=== PATIENT | female | born 1985 | race Caucasian/White ===

== ENCOUNTER 2023-05-03 14:56 | Emergency (ER) | payer OTHER, SELFPAY ==
--- NOTE | ~2023-05-03 | XR_ITS ---
EXAMINATION: XR foot LT min 3V DATE: 05/03/2023 15:42 INDICATION: Left foot injury. TECHNIQUE: 4 views of left foot were obtained. COMPARISON: None. FINDINGS: Bone alignment is normal. No fracture. There is mild osteoarthritis of first metatarsophala ngeal joint and some of the midfoot joints. There is an enthesophyte at plantar aspect of calcaneal t uberosity. IMPRESSION: 1. Mild polyarticular osteoarthritis. Reviewed, dictated and finalized at location A.
--- NOTE | 2023-05-03 15:03 | ED.LOWEXIN ---
HPI - Extremity Injury (Lower) General Chief Complaint: Extremity Injury, Lower Stated Complaint: Left Foot/Toes Source: patient, family and RN notes reviewed History of Present Illness HPI Narrative: 37-year-old female presents to urgent care with complaints of left 2nd through 4th toe pain. Patient states she accidentally jammed her toes 3 nights ago on a piece of furniture. Patient denies any numbness or tingling. Denies any other injuries and has no other complaints. Related Data Home Medications Medication Instructions Recorded Confirmed No Home Medications 05/03/23 05/03/23 Allergies Allergy/AdvReac Type Severity Reaction Status Date / Time cefaclor [From [facility]] Allergy Other Verified 05/03/23 15:18 Review of Systems Review of Systems: CONSTITUTIONAL: Denies fever, chills, or sweats. EYES: Denies visual changes, redness, or discharge. ENT: Denies otalgia and sore throat CARDIOVASCULAR: Denies chest pain, palpitations, or edema. RESPIRATORY: Denies cough or dyspnea. GASTROINTESTINAL: Denies abdominal pain, nausea, vomiting, or diarrhea. GENITOURINARY: Denies dysuria or hematuria. SKIN: Denies rash or itching. MUSCULOSKELETAL: Left 2nd, 3rd, and 4th toe pain. NEUROLOGIC: Denies headache, numbness, or weakness. Pertinent positives per HPI. PMFSH Comments At the time of my signature, I reviewed and agree with the nursing past medical, surgical, social, and family history. There is no relevant family history pertinent to the patient complaint. Exam Narrative: GENERAL: This is a well-nourished, well-developed patient, in no apparent distress. HEAD: normocephalic, atraumatic. EYES: Sclera clear/white. Vision is grossly intact. EARS: External ears normal, auditory canals clear and without drainage. Hearing grossly intact. NOSE: External nose normal with no obvious nasal discharge, nares without redness, no rhinorrhea. THROAT: Mucous membranes moist, posterior pharynx clear. NECK: Neck supple, non-tender without lymphadenopathy, masses or thyromegaly. CARDIOVASCULAR: Regular rate RESPIRATORY: No respiratory distress SKIN: warm, intact with no suspicious lesions or rash, good texture and turgor. NEURO: awake, alert, and oriented to person, place and time. There were no obvious focal neurologic abnormalities. EXTREMITIES: Mild edema noted to left 2nd through 4th toes. BACK: Nontender without deformity or crepitus. No flank tenderness. Course Course Level of Care: Express Care Visit Vital Signs Vital signs: Vital Signs Temperature 97.4 F L 05/03/23 15:06 Pulse Rate 72 05/03/23 15:06 Respiratory Rate 20 05/03/23 15:06 Blood Pressure 148/88 H 05/03/23 15:06 Pulse Oximetry 100 05/03/23 15:06 Oxygen Delivery Room Air 05/03/23 15:06 Temperature 97.4 F L 05/03/23 15:19 Pulse Rate 72 05/03/23 15:19 Respiratory Rate 20 05/03/23 15:19 Blood Pressure 148/88 H 05/03/23 15:19 Pulse Oximetry 100 05/03/23 15:19 Oxygen Delivery Room Air 05/03/23 15:19 Reviewed MDM - Extremity Injury (Lower) MDM Narrative Medical decision making narrative: Use the RICE method at home. May take ibuprofen and/or Tylenol if needed. If symptoms persist in 1 week after conservative treatment, follow-up with specialist. Differential Diagnosis Differential diagnosis: Likely fracture of toe and other (Jammed toe, dislocation) Critical Care Time Critical Care Time Critical Care Time: No Discharge Plan Discharge Clinical Impression: Sprain of toe Qualifiers: Encounter type: initial encounter Qualified Code(s): S93.509A - Unspecified sprain of unspecified toe(s), initial encounter Patient Disposition: Home, Self-Care Condition: Stable Instructions: P.R.I.C.E. Treatment (ED) Additional Instructions: Use the RICE method at home. May take ibuprofen and/or Tylenol if needed. If symptoms persist in 1 week after conservative treatment, follow-up with specialist. Prescrip
[2023-05-03 15:06] VITALS: BP 148/88; PULSE 72; RESP 20; TEMP 36.3; O2SAT 100
[2023-05-03 15:19] VITALS: BP 148/88; PULSE 72; RESP 20; TEMP 36.3; O2SAT 100
== END 2023-05-03 16:17 | disposition home or self-care (01) ==
PROVIDERS: Emergency Provider Nurse Practitioner Family
DX: S93.505A Unspecified sprain of left lesser toe(s), initial encounter (principal); W22.03XA Walked into furniture, initial encounter
CPT/HCPCS: 73630; 99213; G0463

== ENCOUNTER 2025-05-28 14:59 | Emergency (ER) | payer OTHER, SELFPAY ==
[2025-05-28 15:06] VITALS: BP 142/89; PULSE 76; RESP 20; TEMP 37.2; O2SAT 100
--- NOTE | 2025-05-28 15:11 | ED_ITS ---
HPI - URI/Sore Throat General Chief Complaint: Upper Respiratory Infection Stated Complaint: cough/throat/fever Time Seen by Provider: 05/28/25 15:11 Source: patient Mode of arrival: ambulatory Limitations: no limitations History of Present Illness HPI Narrative: Missy is a 39-year-old female patient presenting to the clinic today with complaints of sore throat, ear pain, cough, and fever x3 days. She reports family has been having similar symptoms. Has taken Tylenol and ibuprofen for her symptoms. Denies any shortness of breath or chest pain. MD elicited complaint: sore throat and nasal congestion Related Data Allergies Allergy/AdvReac Type Severity Reaction Status Date / Time cefaclor (From [facility]) Allergy Other Verified 05/28/25 15:19 Review of Systems Review of Systems: Pertinent positives per HPI. Patient denies any fever, chills, rash, headache, visual changes, dizziness, shortness of breath, chest pain, palpitations, nausea, vomiting, diarrhea, constipation, abdominal pain, or any urinary issues. PMFSH Comments At the time of my signature, I reviewed and agree with the nursing past medical, surgical, social, and family history. There is no relevant family history pertinent to the patient complaint. Exam Narrative: General: Well-developed, morbidly obese, in no apparent distress Head: Normocephalic, atraumatic Eyes: Pupils equally round and reactive to light bilaterally, EOM intact, sclera and conjunctive clear, no discharge, lids normal Ears: Right TMs intact, mild bulging, fluid noted behind TM, left TM intact, bulging, red, ear canals clear, no drainage, grossly hearing normal. Nose: Nares patent, clear nasal discharge, no inflammation, no sinus tenderness. Mouth: Oral pharynx red without lesions or masses, good dentition, MMM. Postnasal drip Neck: Supple, trachea midline, no enlargement of anterior or posterior cervical nodes, no thyroid masses or goiter palpable. Cardio: Regular rate and rhythm, s1 and s2 normal, no murmur appreciated. Resp: Clear to auscultation bilaterally, no rhonchi, rales, wheezing or rubs Course Course Emergency Course: Portions of this record may have been created with voice recognition software. Level of Care: Express Care Visit Vital Signs Vital signs: Vital Signs Temperature 37.2 C 05/28/25 15:06 Pulse Rate 76 05/28/25 15:06 Respiratory Rate 20 05/28/25 15:06 Blood Pressure 142/89 H 05/28/25 15:06 Pulse Oximetry 100 05/28/25 15:06 Oxygen Delivery Room Air 05/28/25 15:06 Temperature 37.2 C 05/28/25 15:06 Pulse Rate 76 05/28/25 15:06 Respiratory Rate 20 05/28/25 15:06 Blood Pressure 142/89 H 05/28/25 15:06 Pulse Oximetry 100 05/28/25 15:06 Oxygen Delivery Room Air 05/28/25 15:06 Vital signs reviewed MDM - URI/Sore Throat MDM Narrative Medical decision making narrative: At the time of visit patient is resting comfortably on the exam table. Patient appears to be nontoxic. Complaints of sore throat, ear pain, cough, and fever x3 days. She reports family has been having similar symptoms. Has taken Tylenol and ibuprofen for her symptoms. Denies any shortness of breath or chest pain. On exam patient has right ear fluid noted behind the TM, left hand, bulging, red, clear nasal drainage, postnasal drip, oropharynx red. Strep, COVID, and influenza testing was ordered. Labs: Strep, COVID, and influenza testing was performed in all testing was negative Plan: Patient has URI/pharyngitis/postnasal drip/right serous otitis/left reginaldo tis media. Prescription for Augmentin was sent to the pharmacy. Supportive measures were discussed with the patient and they voiced understanding discharge instructions and agrees to treatment plan. Return precautions reviewed Differential Diagnosis Differential diagnosis: Likely upper respiratory infection, otitis media, sinusitis, viral infection, bronchitis, influenza, pharyngitis and other (COVID) Discharge Plan Discharge Clinical Impression: Upper respiratory infection, Pharyngitis, Acute left otitis media, Acute serous otitis media of right ear Patient Disposition: Home Condition: Stable Instructions: Antibiotic Form, Pharyngitis (ED), Ear Infection (ED), Upper Respiratory Infection (ED), Fluid In The Ear (Serous Otitis Media) (ED) Additional Instructions: COVID, flu, and strep test were all negative in the clinic today. We will send strep for culture Take amoxicillin as prescribed Increase fluids and stay well hydrated May take Tylenol or motrin as directed on bottle for pain/fever May use Flonase 1 spray in each nare daily May take OTC antihistamines such as Zyrtec or Claritin daily as directed on bottle May apply Vicks vapor rub to chest to open sinuses Sinus rinses for congestion Cepacol spray, cough drops, throat lozenges, warm tea with honey/lemon, gargle salt water to soothe throat BRAT diet for diarrhea Clear liquids x 24 hours then advance as tolerated for nausea/vomiting Go to the ED if you develop a worsening in your condition- high fever not controlled by Tylenol or Motrin, dehydration, weakness, lethargy, shortness of breath, or chest pain. Follow up with your PCP in 3-5 days if symptoms persist. Patient Language: Telugu Prescriptions: New amoxicillin-pot clavulanate 875-125 mg tablet 1 tablet PO Q12H 10 Days Qty: 20 0RF Follow-up/Referrals: Bonifacio,Jhon Potter MD [Primary Care Provider, Unknown] Time of Disposition: 15:32 Quality NIHSS Nursing Documentation ED NIHSS nursing documentation: reviewed/agree
--- OUTSIDE RECORDS SUMMARY | 2025-05-28 15:12 | XMS_ITS | Clinical Summary ---
Author Organization [facility] Address [address] [place] [address] Care Team Providers Care Advertising Intern Name Role Phone Jhon Valdovinos MD Primary Care Provider Katherin Chamorro MD Unavailable Jose Donovan MD Unavailable Emerson Chavez MD Unavailable [phone] Daniel Hines MD Unavailable Shana Abdi Unavailable Allergies Active Allergy Reactions Criticality Noted Date Comments Cefaclor Unknown Low 12/31/2017 As a child Latex Hives Medium 02/10/2024 Medications losartan (COZAAR) 50 mg tabletIndications :Hypertension, essential TAKE 1 TABLET BY MOUTH EVERY DAY 90 tablet 1 5 Active albuterol HFA (PROVENTIL HFA,VENTOLIN HFA,PROAIR HFA) 90 mcg/actuation inhalerIndication s:Mild intermittent asthma without complication INHALE 2 PUFFS BY MOUTH EVERY 4 HOURS NEEDED FOR SHORTNESS OF BREATH. 6.7 each 1 5 Active phentermine 37.5 mg capsuleIndication s:Weight Loss Management for Obese Patient (BMI >= 30) Take 1 capsule (37.5 mg total) by mouth every morning 30 capsule 2 5 Active Active Problems Problem Noted Date Diagnosed Date Plantar fasciitis of right foot 08/21/2024 Overview (08/25/2024): XR Right foot XR Lumbar spine 08/19 IMPRESSION: Mild L2-L3 and moderate L3-L4 degenerative disc disease with inferior lumbar facet osteoarthritis. Moderate-sized right heel spur. Polyarticular right midfoot and 1st metatarsophalangeal joint osteoarthritis Recommended podiatric assistance with heel spur Assessment & Plan (08/21/2024 1:53 PM AUTO ADJUDICATION SPECIALIST): - new diagnosis - right foot - heel area has pain when she gets up in the morning or from resting to activity - she missed appointment with podiatry in the past - obtain XR Right foot, order placed - provided patient handout of exercises to do for plantar fascitis - also has known morbid obesity, see plan for obesity Encounter for female sterilization procedure 08/2024 History of gestational diabetes 07/19/2024 Assessment & Plan (07/19/2024 1:56 PM CDT): - hx of gestational diabetes - check A1c, order placed - POC A1c 07/19/2024 - 5.7 Lab Results Component Value Date HGBA1C 5.7 07/19/2024 HGBA1C 5.2 02/18/2023 HGBA1C 5.3 09/16/2021 Hypertension, essential 07/19/2024 Assessment & Plan (12/26/2024 9:45 AM CDT): BP Readings from Last 3 Encounters: 12/26/24 128/80 11/22/24 (!) 174/99 08/31/24 143/69 - chronic condition, better controlled without medication - prior to this was on Nifedipien in peripartum period - has not been taking Losartan 50 mg daily as she will be on phentermine - monitor BP closely The current medical regimen is effective; continue present plan and medications. Assessment & Plan (08/21/2024 1:49 PM AUTO ADJUDICATION SPECIALIST): BP Readings from Last 3 Encounters: 08/21/24 140/84 08/21/24 (!) 157/106 07/19/24 130/82 - recent diagnosis, improved control - prior to this was on Nifedipien in peripartum period - recently started Losartan 50 mg daily as she will be on phentermine - monitor BP closely - continue current management Assessment & Plan (07/19/2024 1:50 PM CDT): - new diagnosis - prior to this was on Nifedipien in peripartum period - start Losartan 50 mg daily as she will be on phentermine - monitor BP closely Preventative health care 05/12/2023 Assessment & Plan (05/12/2023 4:46 PM CDT): - Acute concerns: worsening back and hip pains, see plans for trochanteric bursitis of both hips and back pain - reviewed most recent labs, and health maintenance items - Exercise: limited due to chronic pain - Immunizations: Age and sex appropriate immunizations reviewed - recommend tobacco smoking cessation - Cervical Cancer screening: up to date, sees Dr. Chavez (OBGYN), will request records for pap smear results - Breast Cancer screening: n/a - Colon cancer screening: n/a - Lung cancer screening: n/a Atypical chest pain 04/17/2023 Assessment & Plan (04/17/2023 2:03 PM CDT): - reports hx of chest pain at rest and heart palpitations and prior diagnosis of - recent ED visit with reassuring findings ut told to follow up - requesting referral with Cardiology, in past states she used to see Dr. Donovan - not on medication for it, unclear if she was on one or if she stopped it on her own - referral placed, to cardiology at [facility] Easy bruising 02/21/2023 Assessment & Plan (05/12/2023 1:21 PM CDT): - recurring condition, not at goal - see most recent relevant labs below - see orders placed as well and results which are mostly within normal limits - vitamin C level low on 02/15 - recommend vitamin C 500 mg daily intake but not on it as she sates she cannot afford it Lab Results Component Value Date WBC 10.5 (H) 02/18/2023 HGB 13.3 02/18/2023 HCT 41.3 02/18/2023 MCV 93.7 02/18/2023 LABPLAT 354 02/18/2023 Lab Results Component Value Date CALCIUM 9.1 02/18/2023 Lab Results Component Value Date IRON 51 02/18/2023 TIBC 307 02/18/2023 FERRITIN 45 02/18/2023 Lab Results Component Value Date INR 0.9 02/18/2023 Assessment & Plan (02/21/2023 6:01 AM CDT): - recurring condition, see orders for evaluation - see most recent relevant labs below - see orders placed as well and results which are mostly within normal limits - vitamin C level pending Lab Results Component Value Date WBC 10.5 (H) 02/18/2023 HGB 13.3 02/18/2023 HCT 41.3 02/18/2023 MCV 93.7 02/18/2023 LABPLAT 354 02/18/2023 Lab Results Component Value Date CALCIUM 9.1 02/18/2023 Lab Results Component Value Date IRON 51 02/18/2023 TIBC 307 02/18/2023 FERRITIN 45 02/18/2023 Lab Results Component Value Date INR 0.9 02/18/2023 Polymyalgia 01/17/2023 Assessment & Plan (05/12/2023 4:41 PM CDT): - chronic, worse - likely fibromyalgia with presentation - has mental health conditions --> managed with Psychiatry - was on gabapentin 300 mg nightly but has been off of it --> restart therapy, script sent in Lab Results Component Value Date TSH 1.56 02/18/2023 ADHD 04/28/2022 Overview (07/19/2024): Managed by psychiatry, Dr. Chamorro Assessment & Plan (12/26/2024 9:40 AM CDT): - chronic, stable - used to see Dr. Chamorro - psychiatry - used to be on Wellbutrin XL 150 mg daily Assessment & Plan (04/28/2022 11:15 AM CDT): - chronic, stable - established with Dr. Chamorro - currently on Wellbutrin XL 150 mg daily Cocaine dependence in remission 01/28/2022 Assessment & Plan (01/28/2022 9:10 AM CDT): - reports use of cocaine in remote past - has been abstinent for many years Chronic back pain 01/26/2022 Overview (08/25/2024): XR Right foot XR Lumbar spine 08/19 IMPRESSION: Mild L2-L3 and moderate L3-L4 degenerative disc disease with inferior lumbar facet osteoarthritis. Moderate-sized right heel spur. Polyarticular right midfoot and 1st metatarsophalangeal joint osteoarthritis Assessment & Plan (08/21/2024 1:55 PM AUTO ADJUDICATION SPECIALIST): - chronic, not at goal --> persistent symptoms - most recent imaging as shown below - also has bilateral trochanteric bursitis for which she follows with orthopedics - has muscle relaxer for use which she used as needed only - on weight loss medication for obesity Body mass index is 46.37 kg/m . 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 History of scoliosis of unspecified convexity and levels. No lower back surgeries. COMPARISON: Lumbar spine radiograph 02/01/2022; lumbar spine radiograph 06/27/2014 (report without images). VERTEBRAE: Vertebral bodies of normal height. Vertebral body heights unchanged. Predominantly mild spondylosis. DISCS: Multilevel variable predominantly slight loss of intervertebral disc height about the lower thoracic through lumbar spine with foci of vacuum disc phenomenon of the lower thoracic intervertebral discs. IMPRESSION: 1. Mild spondylosis and degenerative disc disease of the lumbar spine. 2. If clinically warranted, MRI of the lumbar spine without contrast can be performed for further evaluation. XR lumbar spine 01/2022 There is no definite evidence of acute fracture or subluxation involving the lumbar spine. There is a minimal levoscoliotic curvature lumbar spine centered at L3. There is no definite evidence of spondylolysis. There is minimal retrolisthesis of L4 on L5 and L5 on S1. There are mild multilevel degenerative changes lumbar spine with mild disc space narrowing, mild endplate osteophytosis, and facet arthropathy. There are mild degenerative changes bilateral sacroiliac joints with mild joint space narrowing and mild sclerosis. The visualized soft tissues are grossly unremarkable 1. Mild multilevel lumbar spondylosis without definite evidence of acute fracture or subluxation. Assessment & Plan (05/12/2023 4:48 PM CDT): - chronic, not at goal --> worse - most recent imaging as shown below - also has bilateral trochanteric bursitis for which she follows with orthopedics - has muscle relaxer for use which she used as needed onlu - on weight loss medication for obesity Body mass index is 38.09 kg/m . - interested in assistance with pain medication, referral placed to pain management EXAM DESCRIPTION: XR SPINE LUMBAR 4 OR MORE VIEWS 03/18 REASON FOR STUDY: Chronic nontraumatic lower back pain worsening over the past 2 months. History of scoliosis of unspecified convexity and levels. No lower back surgeries. COMPARISON: Lumbar spine radiograph 02/01/2022; lumbar spine radiograph 06/27/2014 (report without images). VERTEBRAE: Vertebral bodies of normal height. Vertebral body heights unchanged. Predominantly mild spondylosis. DISCS: Multilevel variable predominantly slight loss of intervertebral disc height about the lower thoracic through lumbar spine with foci of vacuum disc phenomenon of the lower thoracic intervertebral discs. IMPRESSION: 1. Mild spondylosis and degenerative disc disease of the lumbar spine. 2. If clinically warranted, MRI of the lumbar spine without contrast can be performed for further evaluation. XR lumbar spine 01/2022 There is no definite evidence of acute fracture or subluxation involving the lumbar spine. There is a minimal levoscoliotic curvature lumbar spine centered at L3. There is no definite evidence of spondylolysis. There is minimal retrolisthesis of L4 on L5 and L5 on S1. There are mild multilevel degenerative changes lumbar spine with mild disc space narrowing, mild endplate osteophytosis, and facet arthropathy. There are mild degenerative changes bilateral sacroiliac joints with mild joint space narrowing and mild sclerosis. The visualized soft tissues are grossly unremarkable 1. Mild multilevel lumbar spondylosis without definite evidence of acute fracture or subluxation. Assessment & Plan (04/17/2023 2:00 PM CDT): - chronic condition - has history of lumbar spondylosis - currently on Cyclobenzapril 5mg BID PRN and on gabapentin 300mg nightly - most recent imaging as sown below - has obesity Body mass index is 37.77 kg/m . - continue current management XR Lumbar spine 02/2023 IMPRESSION: 1. Mild spondylosis and degenerative disc disease of the lumbar spine. 2. If clinically warranted, MRI of the lumbar spine without contrast can be performed for further evaluation. XR Lumbar spine 06/2014 1. MILD DEGENERATIVE ENDPLATE CHANGES AT L3-4. 2. MILD STRAIGHTENING OF THE LUMBAR COLUMN. 3. NO EVIDENCE OF FRACTURE OR MALALIGNMENT. Assessment & Plan (01/28/2022 9:09 AM CDT): - reports past history of lumbar spondylosis - has been using Cyclobenzapril 5mg BID PRN - she was also on gabapentin 300mg nightly - need to get imaging of her lower back, ordered XR of lumbar spine Most recent XR of lumbar spine as shown below from 06/2014 XR Lumbar spien 06/2014 1. MILD DEGENERATIVE ENDPLATE CHANGES AT L3-4. 2. MILD STRAIGHTENING OF THE LUMBAR COLUMN. 3. NO EVIDENCE OF FRACTURE OR MALALIGNMENT. Bipolar affective disorder in remission 01/27/20 22 Overview (07/19/2024): Managed by psychiatry, Dr. Chamorro Assessment & Plan (12/26/2024 9:41 AM CDT): - chronic condition, stable with persistent symptoms - has comorbid diagnosis of Multiple personality disorder, ADHD, Bipolar disorder, anxiety - has established care with Dr. Chamorro - she was not compliant with medication according to her - used to be on on Wellbutrin XL 150 mg daily, Lamictal and was on control at same time, Lexapro - needs to reestablish care with Dr. Chamorro psychiatry Assessment & Plan (04/28/2022 11:14 AM CDT): - chronic condition, well controlled - has comorbid diagnosis of Multiple personality disorder, ADHD, Bipolar disorder - has established care with Dr. Chamorro - she was not compliant with medication according to her - currently on Wellbutrin XL 150 mg daily - she used to be on Lamictal and was on control at same time - continue management per psychiatry Assessment & Plan (01/26/2022 11:50 AM CDT): - chronic condition, not at goal control - has comorbid diagnosis of Multiple personality disorder - used to follow with Dr. Chamorro - she was not compliant with medication according to her - she used to be on Lamictal and was on control at same time - has made an appointment to psychiatry this month Mental health disorder 09/08/2021 Assessment & Plan (10/13/2023 10:09 AM AUTO ADJUDICATION SPECIALIST): - chronic, suboptimal control - used to follow with psychiatry - DR. Chamorro in the past - reports past diagnosis - BPD, PTSD, Depression, anxiety and ADHD - No longer following with psychiatry. She had medical non-compliance and stopped taking medications. She has been trying to conceive for over a year. She used to be on Lamictal, Zoloft or Prozac and she takes Klonopin that she has some left over. - she took her self off all her medications in the past - she does have substance use history in the past - cocaine - she is currently off her Buspar, Trazodone, Hydroxyzine, Lexparo that she was on via psychiatry since she found out she was - continue current management via psychiatry and recommend close follow up Assessment & Plan (04/17/2023 1:59 PM CDT): - chronic, suboptimal control - used to follow with psychiatry - DR. Chamorro in the past - reports past diagnosis - BPD, PTSD, Depression, anxiety and ADHD - No longer following with psychiatry. She had medical non-compliance and stopped taking medications. She has been trying to conceive for over a year. She used to be on Lamictal, Zoloft or Prozac and she takes Klonopin that she has some left over. - she took her self off all her medications in the past - she does have substance use history in the past - cocaine - she is currently on Buspar for anxiety, Trazodone, Hydroxyzine via psychiatry - continue current management via psychiatry Assessment & Plan (01/28/2022 9:09 AM CDT): - chronic, uncontrolled - used to follow with psychiatry - DR. Chamorro in the past - reports past diagnosis - BPD, PTSD, Depression, anxiety and ADHD - No longer following with psychiatry. She had medical non-compliance and stopped taking medications. She has been trying to conceive for over a year. She used to be on Lamictal, Zoloft or Prozac and she takes Klonopin that she has some left over. - she took her self off all her medications in the past - states she will be reaching out to make an appointment to see her psychiatrist for assistance Assessment & Plan (09/08/2021 6:20 AM AUTO ADJUDICATION SPECIALIST): - chronic, stable - used to follow with psychiatry - DR. Chamorro in the past - she has been given the following diagnosis - BPD, PTSD, Depression, anxiety and ADHD - No longer following with psychiatry. She had medical non-compliance and stopped taking medications. She has been trying to conceive for over a year. She used to be on Lamictal, Zoloft or Prozac and she takes Klonopin that she has some left over. - recommend reestablishing with psychiatry in the future Chronic heartburn 09/08/2021 Assessment & Plan (06/01/2022 11:05 AM CDT): - chronic, stable - currently on Famotidine 20mg BID - Continue on current meds, encouraged healthy diet and exercise Recommend the following changes: - Avoid trigger foods (such as spicy foods, fried foods, onions, peppermints, chocolate, high acid foods and juices, caffeinated beverages, carbonated beverages, and tomato based products). - Avoid alcohol take. - Avoid routine use of NSAIDs. - Avoid lying down for 2-3 hours after eating. - Weight loss encouraged. - Eat smaller meals. - Avoid tobacco use. - Sleep on left side. - may sleep with bed propped. - Avoid wearing tight clothing that puts pressure on the stomach. Assessment & Plan (11/12/2021 4:46 PM AUTO ADJUDICATION SPECIALIST): - chronic, stable - currently on Famotidine 20mg BID - Continue on current meds, encouraged healthy diet and exercise Recommend the following changes: - Avoid trigger foods (such as spicy foods, fried foods, onions, peppermints, chocolate, high acid foods and juices, caffeinated beverages, carbonated beverages, and tomato based products). - Avoid alcohol take. - Avoid routine use of NSAIDs. - Avoid lying down for 2-3 hours after eating. - Weight loss encouraged. - Eat smaller meals. - Avoid tobacco use. - Sleep on left side. - may sleep with bed propped. - Avoid wearing tight clothing that puts pressure on the stomach. Assessment & Plan (09/08/2021 6:23 AM AUTO ADJUDICATION SPECIALIST): - chronic, stable - takes Famotidine on a daily basis - Continue on current meds, encouraged healthy diet and exercise Recommend the following changes: - Avoid trigger foods (such as spicy foods, fried foods, onions, peppermints, chocolate, high acid foods and juices, caffeinated beverages, carbonated beverages, and tomato based products). - Avoid alcohol take. - Avoid routine use of NSAIDs. - Avoid lying down for 2-3 hours after eating. - Weight loss encouraged. - Eat smaller meals. - Avoid tobacco use. - Sleep on left side. - may sleep with bed propped. - Avoid wearing tight clothing that puts pressure on the stomach. 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 She had a left hand cast on so only did right hand at the time. New order placed for left hand/arm. 01/2022 - Right Upper extremity EMG/NCV EMG Concentric needle electrode sampled right abductor pollicis brevis, abductor digiti minimi, first dorsal interossei, flexor carpi ulnaris, deltoid and upper cervical paraspinal muscles. No abnormal insertion or spontaneous activity was generated. Motor unit potentials were normal. 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 - will need surgery for right carpal tunnel release, postponed it to care for her for now - told will need to lose weight for surgery Assessment & Plan (11/15/2023 5:57 AM AUTO ADJUDICATION SPECIALIST): - chronic, not at goal but worse since her - suspect carpal tunnel, states she was diagnosed with it in the past as well - checked EMG/NCV as shown below - show bilateral carpal tunnel syndrome - already has already seen a hand surgeon in past and was provided a wrist brace for left carpal tunnel syndrome which has helped her but now having similar symptoms in right wrist, in need of a wrist brace - needs a new brace, printed order for new wrist brace for her right wrist on last visit which she is yet to get EMG/NCV 12/2021 IMPRESSION This is an abnormal electrodiagnostic study with evidence of 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 She had a left hand cast on so only did right hand at the time. New order placed for left hand/arm. 01/2022 - Right Upper extremity EMG/NCV EMG Concentric needle electrode sampled right abductor pollicis brevis, abductor digiti minimi, first dorsal interossei, flexor carpi ulnaris, deltoid and upper cervical paraspinal muscles. No abnormal insertion or spontaneous activity was generated. Motor unit potentials were normal. 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 - will need surgery for right carpal tunnel release, postponed it to care for her for now - told will need to lose weight for surgery Assessment & Plan (11/15/2023 5:56 AM AUTO ADJUDICATION SPECIALIST): - chronic, not at goal but worse since her - suspect carpal tunnel, states she was diagnosed with it in the past as well - checked EMG/NCV as shown below - show bilateral carpal tunnel syndrome - already has already seen a hand surgeon in past and was provided a wrist brace for left wrist which has helped her but now having similar symptoms in right wrist, in need of a wrist brace - needs a new brace, printed order for new wrist brace for her right wrist EMG/NCV 12/2021 IMPRESSION This is an abnormal electrodiagnostic study with evidence of 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 She had a left hand cast on so only did right hand at the time. New order placed for left hand/arm. 01/2022 - Right Upper extremity EMG/NCV EMG Concentric needle electrode sampled right abductor pollicis brevis, abductor digiti minimi, first dorsal interossei, flexor carpi ulnaris, deltoid and upper cervical paraspinal muscles. No abnormal insertion or spontaneous activity was generated. Motor unit potentials were normal. 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 She had a left hand cast on so only did right hand at the time. New order placed for left hand/arm. 01/2022 - Right Upper extremity EMG/NCV EMG Concentric needle electrode sampled right abductor pollicis brevis, abductor digiti minimi, first dorsal interossei, flexor carpi ulnaris, deltoid and upper cervical paraspinal muscles. No abnormal insertion or spontaneous activity was generated. Motor unit potentials were normal. 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 - will need surgery for right carpal tunnel release, postponed it to care for her for now - told will need to lose weight for surgery Assessment & Plan (06/01/2022 11:12 AM CDT): - chronic, not at goal - suspect carpal tunnel, states she was diagnosed with it in the past as well - has tried using wrist braces already without big improvement - checked EMG/NCV as shown below - show bilateral carpal tunnel syndrome - already seeing a hand surgeon so this can be discussed as well EMG/NCV 12/2021 IMPRESSION This is an abnormal electrodiagnostic study with evidence of 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 She had a left hand cast on so only did right hand at the time. New order placed for left hand/arm. 01/2022 - Right Upper extremity EMG/NCV EMG Concentric needle electrode sampled right abductor pollicis brevis, abductor digiti minimi, first dorsal interossei, flexor carpi ulnaris, deltoid and upper cervical paraspinal muscles. No abnormal insertion or spontaneous activity was generated. Motor unit potentials were normal. 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 She had a left hand cast on so only did right hand at the time. New order placed for left hand/arm. 01/2022 - Right Upper extremity EMG/NCV EMG Concentric needle electrode sampled right abductor pollicis brevis, abductor digiti minimi, first dorsal interossei, flexor carpi ulnaris, deltoid and upper cervical paraspinal muscles. No abnormal insertion or spontaneous activity was generated. Motor unit potentials were normal. 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 She had a left hand cast on so only did right hand at the time. New order placed for left hand/arm. 01/2022 - Right Upper extremity EMG/NCV EMG Concentric needle electrode sampled right abductor pollicis brevis, abductor digiti minimi, first dorsal interossei, flexor carpi ulnaris, deltoid and upper cervical paraspinal muscles. No abnormal insertion or spontaneous activity was generated. Motor unit potentials were normal. 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 Assessment & Plan (11/12/2021 4:45 PM AUTO ADJUDICATION SPECIALIST): - chronic, not at goal - suspect carpal tunnel, states she was diagnosed with it in the past as well - has tried using wrist braces already without big improvement - check EMG of bilateral upper extremities which is scheduled in early December Assessment & Plan (09/08/2021 6:28 AM AUTO ADJUDICATION SPECIALIST): - chronic, not at goal - suspect carpal tunnel, states she was diagnosed with it in the past as well - has tried using wrist braces already - check EMG of bilateral upper extremities Morbid obesity with BMI of 45.0-49.9, adult 10/2020 Assessment & Plan (12/26/2024 9:44 AM CDT): Wt Readings from Last 3 Encounters: 12/26/24 118.8 kg (262 lb) 11/22/24 118.8 kg (262 lb) 08/31/24 119.4 kg (263 lb 3.7 oz) Body mass index is 42.31 kg/m . - chronic, not at goal - goal BMI <30 - BMI Follow-up includes: nutrition counseling, exercise counseling and education provided - she was on Victoza at some point for weight loss and then was on phentermine until she got but gave on 01/2024 - restarted Phentermine on last visit at 30 mg daily, used to be on it in the past with some weight loss - has been forgetting to take her phentermine, need more consistency in taking medication, increase to 37.5 mg phentermine, new script sent to her pharmacy Assessment & Plan (08/21/2024 1:49 PM AUTO ADJUDICATION SPECIALIST): Wt Readings from Last 3 Encounters: 08/21/24 120.7 kg (266 lb) 07/19/24 120.8 kg (266 lb 4.8 oz) 05/17/24 122.5 kg (270 lb) Body mass index is 46.37 kg/m . - chronic, not at goal - BMI Follow-up includes: nutrition counseling, exercise counseling and education provided - she was on Victoza at some point for weight loss and then was on phentermine until she got but gave on 01/2024 - restart Phentermine 15 mg daily on last visit at Weight 266 --> recently increased her phentermine to 30 mg daily but has not started it, new script placed - continue current management Assessment & Plan (07/19/2024 1:47 PM CDT): Wt Readings from Last 3 Encounters: 07/19/24 120.8 kg (266 lb 4.8 oz) 05/17/24 122.5 kg (270 lb) 04/09/24 120.2 kg (265 lb) Body mass index is 46.43 kg/m . - chronic, not at goal, not at goal - BMI Follow-up includes: nutrition counseling, exercise counseling and education provided - she was on Victoza at some point for weight loss and then was on phentermine until she got but gave on 01/2024 - restart phentermine --> restart Phentermine 15 mg daily, current BP is adequate but in case will start a low dose antihypertensive medication Assessment & Plan (04/09/2024 2:29 PM CDT): Wt Readings from Last 3 Encounters: 04/09/24 120.2 kg (265 lb) 02/16/24 129.3 kg (285 lb) 11/11/23 123.6 kg (272 lb 6.4 oz) Body mass index is 45.52 kg/m . - chronic, not at goal --> improved weight loss since giving - BMI Follow-up includes: nutrition counseling, exercise counseling and education provided - she was on Victoza at some point for weight loss and then was on phentermine until she got but gave on 01/2024 - wants to restart phentermine --> start Phentermine 15 mg daily, script sent in Assessment & Plan (11/11/2023 10:58 AM AUTO ADJUDICATION SPECIALIST): Wt Readings from Last 3 Encounters: 11/11/23 123.6 kg (272 lb 6.4 oz) 10/11/23 117.9 kg (260 lb) 08/15/23 112 kg (247 lb) Body mass index is 46.73 kg/m . - chronic, not at goal --> worse but currently as well - BMI Follow-up includes: nutrition counseling, exercise counseling and education provided - she was on Victoza at some point for weight loss and then was on phentermine until she got - continue to abstain from weight loss medications during - continue with current management Assessment & Plan (10/11/2023 3:52 PM AUTO ADJUDICATION SPECIALIST): Wt Readings from Last 3 Encounters: 10/11/23 117.9 kg (260 lb) 08/15/23 112 kg (247 lb) 06/14/23 106 kg (233 lb 9.6 oz) Body mass index is 44.61 kg/m . - chronic, not at goal --> worse but currently as well - BMI Follow-up includes: nutrition counseling, exercise counseling and education provided - she was on Victoza at some point for weight loss and then was on phentermine until she got - continue to abstain from weight loss medications during - continue with current management Assessment & Plan (08/15/2023 12:50 PM AUTO ADJUDICATION SPECIALIST): Wt Readings from Last 3 Encounters: 08/15/23 112 kg (247 lb) 06/14/23 106 kg (233 lb 9.6 oz) 06/01/23 106.1 kg (234 lb) Body mass index is 42.4 kg/m . - chronic, not at goal --> worse - BMI Follow-up includes: nutrition counseling, exercise counseling and education provided - she was on Victoza at some point for weight loss - she was told to lose weight for surgery for carpal tunnel surgery - start date of phentermine --> 274 lbs on 04/28/2022 and had lost weight to 234 lbs - no longer on phentermine that she discontinues when she found out she was - continue to abstain from weight loss medications during - she was also on Topamax for migraine headaches as well - continue with current management Assessment & Plan (06/01/2023 1:38 PM CDT): Wt Readings from Last 3 Encounters: 06/01/23 106.1 kg (234 lb) 05/12/23 107 kg (236 lb) 03/31/23 106.1 kg (234 lb) Body mass index is 37.77 kg/m . - chronic, not at goal - BMI Follow-up includes: nutrition counseling, exercise counseling and education provided - she was on Victoza at some point for weight loss - she was told to lose weight for surgery for carpal tunnel surgery - start date of phentermine --> 274 lbs on 04/28/2022 - currently on 37.5 mg daily phentermine - currently also on Topamax for migraine headaches as well - comorbidities - heartburn - has had significant weight loss while on the medication except for recent weight gain - continue current medication Assessment & Plan (05/12/2023 1:10 PM CDT): Wt Readings from Last 3 Encounters: 05/12/23 107 kg (236 lb) 03/31/23 106.1 kg (234 lb) 03/15/23 103.9 kg (229 lb) Body mass index is 38.09 kg/m . - chronic, not at goal, small weight gain - BMI Follow-up includes: nutrition counseling, exercise counseling and education provided - she was on Victoza at some point for weight loss - she was told to lose weight for surgery for carpal tunnel surgery - start date of phentermine --> 274 lbs on 04/28/2022 - currently on 37.5 mg daily phentermine - currently also on Topamax for migraine headaches as well - comorbidities - heartburn - has had significant weight loss while on the medication except for recent weight gain - continue current medication Assessment & Plan (04/17/2023 1:53 PM CDT): Wt Readings from Last 3 Encounters: 03/31/23 106.1 kg (234 lb) 03/15/23 103.9 kg (229 lb) 02/16/23 103.9 kg (229 lb) Body mass index is 37.77 kg/m . - chronic, not at goal, small weight gain - BMI Follow-up includes: nutrition counseling, exercise counseling and education provided - she was on Victoza at some point for weight loss - she was told to lose weight for surgery for carpal tunnel surgery - start date of phentermine --> 274 lbs on 04/28/2022 - currently on 37.5 mg daily phentermine - currently also on Topamax for migraine headaches as well - comorbidities - heartburn - has had significant weight loss while on the medication except for recent weight gain - continue current medication Assessment & Plan (02/21/2023 5:56 AM CDT): Wt Readings from Last 3 Encounters: 02/16/23 103.9 kg (229 lb) 01/10/23 104.8 kg (231 lb) 01/05/23 105.7 kg (233 lb) Body mass index is 36.96 kg/m . - chronic, not at goal, but improving - BMI Follow-up includes: nutrition counseling, exercise counseling and education provided - she was on Victoza at some point for weight loss - she was told to lose weight for surgery for carpal tunnel surgery - start date phentermine --> 274 lbs on 04/28/2022 - currently on 37.5 mg daily phentermine - currently also on Topamax for migraine headaches as well - comorbidities - heartburn - has had significant weight loss - continue current medication Assessment & Plan (01/10/2023 2:11 PM CDT): Wt Readings from Last 3 Encounters: 01/10/23 104.8 kg (231 lb) 01/05/23 105.7 kg (233 lb) 12/07/22 106.6 kg (235 lb) Body mass index is 37.28 kg/m . - chronic, not at goal, improved - BMI Follow-up includes: nutrition counseling, exercise counseling and education provided - she was on Victoza at some point for weight loss - she was told to lose weight for surgery for carpal tunnel surgery - start date phentermine --> 274 lbs on 04/28/2022 - currently on 37.5 mg daily phentermine - currently also on Topamax for migraine headaches - has had significant weight loss - continue current medication Assessment & Plan (10/14/2022 11:38 AM AUTO ADJUDICATION SPECIALIST): Wt Readings from Last 3 Encounters: 10/14/22 106.6 kg (235 lb) 09/29/22 106.1 kg (234 lb) 09/09/22 108.4 kg (239 lb) Body mass index is 37.95 kg/m . - chronic, not at goal, improved - BMI Follow-up includes: nutrition counseling, exercise counseling and education provided - she was on Victoza at some point for weight loss - she was told to lose weight for surgery for carpal tunnel surgery - start date phentermine --> 274 lbs on 04/28/2022 - currently on 37.5 mg daily phentermine - currently also on Topamax for migraine headaches - some slow down on weight loss with holiday season, will get back to her routine diet - continue current medication Assessment & Plan (09/29/2022 11:25 AM AUTO ADJUDICATION SPECIALIST): Wt Readings from Last 3 Encounters: 09/29/22 106.1 kg (234 lb) 09/09/22 108.4 kg (239 lb) 06/10/22 114.3 kg (252 lb) Body mass index is 37.79 kg/m . - chronic, not at goal, improved - BMI Follow-up includes: nutrition counseling, exercise counseling and education provided - she was on Victoza at some point for weight loss - she was told to lose weight for surgery for carpal tunnel surgery - start date phentermine --> 274 lbs on 04/28/2022 - currently on 37.5 mg daily phentermine, refill provided - also on Topamax 25 mg BID, refill provided - continue current medication Assessment & Plan (06/01/2022 11:12 AM CDT): Wt Readings from Last 3 Encounters: 06/01/22 116.1 kg (256 lb) 04/28/22 124.5 kg (274 lb 8 oz) 03/04/22 121.1 kg (267 lb) Body mass index is 41.34 kg/m . - chronic, not at goal, improved - BMI Follow-up includes: nutrition counseling, exercise counseling and education provided - she was on Victoza at some point for weight loss - she was told to lose weight for surgery so interested in medications - I will start her on Phentermine short term to help her lose weight, with goal of <250 lbs - start date phentermine 30 mg daily --> 274 lbs - increase to 37.5 mg daily phentermine, refill provided Assessment & Plan (04/28/2022 11:11 AM CDT): Wt Readings from Last 3 Encounters: 04/28/22 124.5 kg (274 lb 8 oz) 03/04/22 121.1 kg (267 lb) 01/26/22 121.6 kg (268 lb) Body mass index is 44.31 kg/m . - chronic, not at goal - worse - BMI Follow-up includes: nutrition counseling, exercise counseling and education provided - she was on Victoza at some point for weight loss - she was told to lose weight for surgery so interested in medications - I will start her on Phentermine short term to help her lose weight, with goal of <250 lbs Assessment & Plan (01/26/2022 11:34 AM CDT): Wt Readings from Last 3 Encounters: 01/26/22 121.6 kg (268 lb) 12/07/21 118.5 kg (261 lb 4.8 oz) 12/02/21 118.4 kg (261 lb) Body mass index is 43.28 kg/m . - chronic, not at goal - worse - BMI Follow-up includes: nutrition counseling, exercise counseling and education provided - she was on Victoza at some point for weight loss Assessment & Plan (11/12/2021 4:45 PM AUTO ADJUDICATION SPECIALIST): Wt Readings from Last 3 Encounters: 11/11/21 120.9 kg (266 lb 8 oz) 10/21/21 121.1 kg (267 lb) 08/27/21 121.3 kg (267 lb 6.4 oz) Body mass index is 43.04 kg/m . - chronic, not at goal but stable - BMI Follow-up includes: nutrition counseling, exercise counseling and education provided - she was on Victoza at some point for weight loss Assessment & Plan (08/27/2021 10:13 AM AUTO ADJUDICATION SPECIALIST): Wt Readings from Last 3 Encounters: 08/27/21 121.3 kg (267 lb 6.4 oz) 08/25/21 116.6 kg (257 lb) 05/26/21 118.1 kg (260 lb 6.4 oz) Body mass index is 43.18 kg/m . - chronic, not at goal - BMI Follow-up includes: nutrition counseling, exercise counseling and education provided - she was on Victoza at some point for weight loss Tobacco use disorder, mild, in early remission 1 10/28/2020 Overview (08/21/2024): Quit 05/2024 Assessment & Plan (08/21/2024 1:54 PM AUTO ADJUDICATION SPECIALIST): Social History Tobacco Use Smoking Status Former Current packs/day: 0.00 Average packs/day: 0.4 packs/day for 25.7 years (9.0 ttl pk-yrs) Types: Cigarettes Start date: 09/26/1998 Quit date: 06/19/2024 Years since quittin.1 Smokeless Tobacco Never - recently quit, continue with abstinence Assessment & Plan (07/19/2024 1:43 PM CDT): Social History Tobacco Use Smoking Status Former Current packs/day: 0.00 Average packs/day: 0.4 packs/day for 25.7 years (9.0 ttl pk-yrs) Types: Cigarettes Start date: 09/26/1998 Quit date: 06/19/2024 Years since quittin.0 Smokeless Tobacco Never - recently quit, continue with abstinence Assessment & Plan (04/09/2024 2:13 PM CDT): Social History Tobacco Use Smoking Status Every Day Current packs/day: 0.35 Average packs/day: 0.4 packs/day for 25.5 years (8.9 ttl pk-yrs) Types: Cigarettes Start date: 09/26/1998 Smokeless Tobacco Never - chronic, not at goal but improved, smoking 3-5 cigs/day - active daily smoker - discussed importance of tobacco smoking cessation with goal of completely being off Assessment & Plan (11/11/2023 11:12 AM AUTO ADJUDICATION SPECIALIST): Social History Tobacco Use Smoking Status Every Day Packs/day: 0.35 Years: 23.00 Additional pack years: 0.00 Total pack years: 8.05 Types: Cigarettes Start date: 09/26/1998 Smokeless Tobacco Never - chronic, not at goal - active daily smoker - discussed importance of tobacco smoking cessation Assessment & Plan (10/11/2023 3:57 PM AUTO ADJUDICATION SPECIALIST): Social History Tobacco Use Smoking Status Every Day Packs/day: 0.50 Years: 23.00 Additional pack years: 0.00 Total pack years: 11.50 Types: Cigarettes Start date: 09/26/1998 Smokeless Tobacco Never - chronic, not at goal, less since recent pulmonary infection - discussed importance of tobacco smoking cessation Assessment & Plan (08/15/2023 11:43 AM AUTO ADJUDICATION SPECIALIST): Social History Tobacco Use Smoking Status Every Day Packs/day: 0.50 Years: 23.00 Additional pack years: 0.00 Total pack years: 11.50 Types: Cigarettes Start date: 09/26/1998 Smokeless Tobacco Never - chronic, not at goal - discussed importance of tobacco smoking cessation - desires to quit and would like to try nicotine patches on last visit which I recommend she start using Assessment & Plan (05/12/2023 1:26 PM CDT): Social History Tobacco Use Smoking Status Every Day Packs/day: 0.50 Years: 23.00 Pack years: 11.50 Types: Cigarettes Start date: 09/26/1998 Smokeless Tobacco Never - chronic, not at goal - discussed importance of tobacco smoking cessation - desires to quit and would like to try nicotine patches on last visit which I recommend she start using Assessment & Plan (01/10/2023 2:12 PM CDT): Social History Tobacco Use Smoking Status Every Day Packs/day: 0.25 Years: 23.00 Pack years: 5.75 Types: Cigarettes Start date: 09/26/1998 Smokeless Tobacco Never Vaping Use Vaping Status Not on file - chronic, not at goal - discussed importance of tobacco smoking cessation - desires to quit and would like to try nicotine patches on last visit which I recommend she start using Assessment & Plan (09/29/2022 11:00 AM AUTO ADJUDICATION SPECIALIST): Social History Tobacco Use Smoking Status Every Day Packs/day: 0.25 Years: 23.00 Pack years: 5.75 Types: Cigarettes Start date: 09/26/1998 Smokeless Tobacco Never - chronic, not at goal - discussed importance of tobacco smoking cessation - desires to quit and would like to try nicotine patches on last visit which I recommend she start using Assessment & Plan (04/28/2022 11:22 AM CDT): Social History Tobacco Use Smoking Status Current Every Day Smoker Packs/day: 0.25 Years: 23.00 Pack years: 5.75 Types: Cigarettes Start date: 09/26/1998 Smokeless Tobacco Never Used - chronic, not at goal - discussed importance of tobacco smoking cessation - desires to quit and would like to try nicotine patches on last visit which I recommend she start using Assessment & Plan (01/28/2022 9:16 AM CDT): Social History Tobacco Use Smoking Status Current Every Day Smoker Packs/day: 0.25 Years: 23.00 Pack years: 5.75 Types: Cigarettes Start date: 09/26/1998 Smokeless Tobacco Never Used - chronic, not at goal - discussed importance of tobacco smoking cessation - desires to quit and would like to try nicotine patches, script sent in Assessment & Plan (11/12/2021 4:44 PM AUTO ADJUDICATION SPECIALIST): Social History Tobacco Use Smoking Status Current Every Day Smoker Packs/day: 0.50 Years: 23.00 Pack years: 11.50 Types: Cigarettes Start date: 09/26/1998 Smokeless Tobacco Never Used - chronic, not at goal - discussed importance of tobacco smoking cessation - desires to quit, has tried patches before - chantix on recall but that had helped her before - will consider wellbutrin in future Assessment & Plan (08/27/2021 9:55 AM AUTO ADJUDICATION SPECIALIST): Social History Tobacco Use Smoking Status Current Every Day Smoker Packs/day: 0.50 Years: 23.00 Pack years: 11.50 Types: Cigarettes Start date: 09/26/1998 Smokeless Tobacco Never Used - discussed importance of tobacco smoking cessation - she is not ready to quit at this time Migraine without aura and wi thout status migrainosus, not intractable 08/27/2021 Assessment & Plan (05/12/2023 1:21 PM CDT): - chronic, well controlled - currently on Topiramate 50 mg BID - she also takes Ibuprofen 800 mg as needed only, very rare - continue with current therapy Assessment & Plan (01/10/2023 2:16 PM CDT): - chronic, better controlled - currently on Topiramate 50 mg BID - she also takes Ibuprofen 800 mg as needed only, very rare - continue with current therapy Assessment & Plan (10/14/2022 11:38 AM AUTO ADJUDICATION SPECIALIST): - chronic, improved but not at goal - restart Topiramate 25 mg BID --> increase to 50 mg BID in increment of 25 mg - discussed using abortive medications, offer provided - often with nausea, light sensitivity - also notices it in premenstrual period - she also takes Ibuprofen 800 mg as needed only, very rare - continue with current therapy with changes made above Assessment & Plan (09/29/2022 11:28 AM AUTO ADJUDICATION SPECIALIST): - chronic, not at goal - had run out of medications - restart Topiramate 25 mg BID --> refill provided - she also takes Ibuprofen 800 mg as needed only, very rare - continue with current therapy Assessment & Plan (06/01/2022 11:04 AM CDT): - chronic, well controlled - currently on Topiramate 25 mg daily at this time - she also takes Ibuprofen 800 mg as needed only, very rare - refill provided for Topiramate 25 mg daily - continue with current therapy Assessment & Plan (01/26/2022 11:46 AM CDT): - chronic, not well controlled - currently on Topiramate 25 mg daily at this time - she also takes Ibuprofen 800 mg as needed only - refill provided for Topiramate 25 mg daily - continue with current therapy Assessment & Plan (11/12/2021 4:50 PM AUTO ADJUDICATION SPECIALIST): - chronic, well controlled - currently on Topiramate 25 mg daily at this time - she also takes Ibuprofen 800 mg as needed only - continue with current therapy Assessment & Plan (08/27/2021 9:54 AM AUTO ADJUDICATION SPECIALIST): - chronic, well controlled - currently on Topiramate 25 mg daily at this time - she also takes Ibuprofen 800 mg as needed only - continue with current therapy Mild intermittent asthma without complication Assessment & Plan (11/11/2023 11:12 AM AUTO ADJUDICATION SPECIALIST): - chronic, better controlled - since childhood - triggers - season changes, exercise/exertion, fire smoke, camp fire, mold allergy - she has a rescue albuterol inhaler which she is using frequently - she also seasonal allergies, use OTC allergy medications - discussed about controller agents but hesitant in past - no longer on Singulair to assist with asthma and allergies - PFT obtained as shown below - recommend use of nebulizer, already has nebulizer solution, script for new nebulizer kit ordered and sent on 09/2023 - continue current management PFT 03/10/2022 INTERPRETATION Please see technologist's comments mentioned in attached results report. SPIROMETRY: Pre bronchodilator FEV1 is 65 % predicted, FVC is 72 % predicted, FEV1/FVC is 0.74 Bronchodilator response: No, in fact spirometric values decline after bronchodilators Inspection of the patient's flow-volume loops shows: The pre bronchodilator expiratory limb is notched. IMPRESSION: 1. No overt evidence of an obstructive ventilatory limitation 2. Cannot exclude a restrictive ventilatory limitation in the absence of lung volumes 3. There was not a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
--- OUTSIDE RECORDS SUMMARY | 2025-05-28 15:12 | XMS_ITS | Clinical Summary ---
Author Organization [facility] Scout Address [address] [place] [address] Care Team Providers Care Paper Inspector Name Role Phone Jessy Reddy MD Primary Care Provider [phone] Source Comments [facility],non-owned Affiliates and Associated Physician Practices is amultiple site organization consisting of ambulatory clinics and hospital sitesin [place], [place], [place] and [place]. This disclosure is being madepursuant to the Care Everywhere program and may not contain all information available regarding this patient. Last updated 18.[facility] Allergies Active Allergy Reactions Criticality Noted Date Comments Cefaclor Itching 08/31/2019 Medications * Be aware that medications may not be up to date on this document. Alwaysverify current medications with the patient. meloxicam (MOBIC) 15 MG tablet TAKE 1 TABLET BY MOUTH EVERY DAY FOR 10 DAYS THEN NEEDED, TAKE WITH FOOD EVERY MORNING 30 tablet 10/03/2019 Active Social History Tobacco Use Types Packs/Day Years Used Date Smoking Tobacco: Every Day Cigarettes Smokeless Tobacco: Never Tobacco Cessation:Ready to Q uit: Yes; Counseling Given: Yes Alcohol Use Standard Drinks/Week Comments Yes 0 (1 standard drink = 0.6 oz pur e alcohol) Comments Unknown Sex and Gender Information Value Date Recorded Sex Assigned at Not on file Legal Sex Female 9:26 AM CDT Gender Identity Not on file Sexual Orientation Not on file Last Filed Vital Signs Vital Sign Reading Time Taken Comments Blood Pressure 141/76 11/29/2019 2:31 PM FISH SALTER Pulse 72 11/29/2019 2:31 PM FISH SALTER Temperature 37.1 C (98.8 F) 11/29/2019 2:31 PM FISH SALTER Respiratory Rate 18 08/31/2019 1:15 PM FISH SALTER Oxygen Saturation 100% 11/29/2019 2:31 PM FISH SALTER Inhaled Oxygen Concentration - - Weight 113.4 kg (250 lb) 11/29/2019 2:31 PM FISH SALTER Height 167.6 cm (5' 6) 11/29/2019 2:31 PM FISH SALTER Body Mass Index 40.35 11/29/2019 2:31 PM FISH SALTER Plan of Treatment Health Maintenance Due Date Last Done Comments HIV SCREENING 2000 HEPATITIS C SCREENING 08/05/2003 DTAP/TDAP/TD VACCINES (1 - Tdap) 2004 HEPATITIS B VACCINE (1 of 3 - 19+ 3-dose series) 2004 HPV VACCINE (1 - 3-dose SCDM series) 2012 COVID-19 VACCINE (1 - 2023-2 5 season) 2024 DEPRESSION SCREENING 09/26/2024 INFLUENZA VACCINE (#1) 2025 ZOSTER VACCINE (1 of 2) 2035 HIB VACCINE Aged Out No longer eligi ble based on patient's age to complete this topic MENINGOCOCCAL (Group B) VACC INE SHARED DECISION-MAKING Aged Out No longer eligibl e based on patient's age to complete this topic MENINGOCOCCAL GROUPS A/C/Y/W VACCINE Aged Out No longer eligible b ased on patient's age to complete this topic PNEUMOCOCCAL VACCINE Aged Out No long er eligible based on patient's age to complete this topic Goals Goal Patient Goal Type Associated Problems Recent Progress Patient-Stated? Author Mobility General No Mikayla Rocha, RN Note: Expected end date: 01/25/2020 The goal is to maintain or improve your mobility at the optimum level for you. Interventions: Insurance [facility] [place] [address] [place] Member Subscriber Plan / Payer (Ef fective for All Dates) Name:Missy Rey Relation to Subscriber:Self Name:MISSY MORAES Payer ID:Not on file Group ID:Not on file Type:Medicaid [place] Address: [address] [place] Member Subscriber Plan / Payer (Ef fective for All Dates) Name:Missy Rey Relation to Subscriber:Self Name:MISSY MORAES Payer ID:Not on file Group ID:Not on file Type:[place] Address: [address] [place] [facility] [place] [facility] [place] Member Subscriber Plan / Payer (Ef fective for All Dates) Name:Missy Rey Relation to Subscriber:Self Name:MISSY MORAES Payer ID:Not on file Group ID:Not on file Type:Medicaid [place] Address: [address] [facility] [place] Member Subscriber Plan / Payer (Ef fective for All Dates) Name:Missy Rey Relation to Subscriber:Self Name:MISSY MORAES Payer ID:Not on file Group ID:Not on file Type:Medicaid [place] Address: [address] [place] Member Subscriber Plan / Payer (Ef fective for All Dates) Name:Missy Rey Relation to Subscriber:Self Name:MISSY MORAES Payer ID:Not on file Group ID:Not on file Type:Medicaid [place] Address: [address] [facility] [place] [facility] [place] Sub[place] Plan / Payer (Ef fective for All Dates) Name:Missy Rey Relation to Subscriber:Self Name:MISSY MORAES Payer ID:Not on file Group ID:Not on file Type:Medicaid [place] Address: [place] [id number] [facility] [place] [facility] [place] [facility] [place] [facility] [place] Member Subscriber Plan / Payer (Ef fective for All Dates) Name:Missy Rey Relation to Subscriber:Self Name:MISSY MORAES Payer ID:Not on file Group ID:Not on file Type:Medicaid [place] Address: [place] [id number] [facility] [place] [facility] [place] [facility] [place] [facility] [place] [facility] [place] [facility] [place] [facility] [place] [facility] [place] Subscriber Plan / Payer (Ef fective for All Dates) Name:Missy Rey Relation to Subscriber:Self Name:MISSY MORAES Payer ID:Not on file Group ID:Not on file Type:Medicaid [place] Address: [place] [id number] [facility] [place] [facility] [place] [facility] [place] [facility] [place] [facility] [place] [facility] [place] [facility] [place] [facility] [place] Member Subscriber Plan / Payer (Ef fective for All Dates) Name:Missy Rey Relation to Subscriber:Self Name:MISSY MORAES Payer ID:Not on file Group ID:Not on file Type:Medicaid [place] Address: [place] [id number] [facility] [place] Care Teams Paper Inspector Relationship Specialty Start Date End Date Jessy Reddy MD [address] [place] [address] [facility] - General 06/19/19
--- OUTSIDE RECORDS SUMMARY | 2025-05-28 15:12 | XMS_ITS | Clinical Summary ---
Author Organization [facility] Address [address] [place] [address] Phone Care Team Providers Care Envelope Adjuster Name Role Phone Jhon Valdovinos MD Primary Care Provider Allergies Active Allergy Reactions Criticality Noted Date Comments Cefaclor Unknown 12/31/2017 Medications cyclobenzaprine (FLEXERIL) 5 MG Tablet Take 1 Tab by mouth 3 times daily as needed. 42 Tab 8 Active ibuprofen (MOTRIN) 800 MG Tablet Take 1 Tab by mouth every 8 hours. 60 Tab 8 Active ondansetron (ZOFRAN) 4 MG Tablet Take 1 Tab by mouth every 8 hours as needed for Nausea - 1st line. 10 Tab 9 Active meloxicam (MOBIC) 7.5 MG Tablet Take 1 Tab by mouth daily. 30 Tab 0 Active ketorolac (TORADOL) 10 MG Tablet Take 1 Tab by mouth every 6 hours as needed for Moderate or more severe pain. 10 Tab 0 Active HYDROcodone-acet aminophen (NORCO) 5-325 MG Tablet Take 1 Tablet by mouth every 6 hours as needed for Moderate or more severe pain. 12 Tablet 1 Active Albuterol Sulfate (PROVENTIL HFA IN) take by inhalation. Active ketorolac (TORADOL) 10 MG Tablet Take 1 Tablet by mouth every 8 hours as needed for Moderate or more severe pain or Severe pain. 8 Tablet 1 Active ondansetron (ZOFRAN-ODT) 4 MG TABLET DISPERSIBLE Take 1 Tablet by mouth every 6 hours as needed for Nausea - 1st line. 10 Tablet 1 Active dicyclomine (BENTYL) 20 MG Tablet Take 1 Tablet by mouth every 6 hours. 30 Tablet 1 Active cyclobenzaprine (FLEXERIL) 5 MG Tablet Take 1 Tablet by mouth 3 times daily as needed for Muscle spasms. 15 Tablet 1 Active methylPREDNISolo ne (MEDROL DOSPACK) 4 MG Tablet Therapy Pack See product package insert for dosing schedule 21 Tablet 1 Active ibuprofen (MOTRIN) 800 MG Tablet Take 1 Tablet by mouth every 8 hours. 30 Tablet 1 Active methylPREDNISolo ne (MEDROL DOSPACK) 4 MG Tablet Therapy Pack See product package insert for dosing schedule 21 Tablet 2 Active ketorolac (TORADOL) 10 MG Tablet Take 1 Tablet by mouth every 6 hours as needed for Moderate or more severe pain. 15 Tablet 2 Active albuterol (ProAir HFA) 108 (90 Base) MCG/ACT Aerosol Solution take 2 Puffs by inhalation every 4 hours as needed for Wheezing or Cough. 8 g 3 Active Social History Tobacco Use Types Packs/Day Years Used Date Smoking Tobacco: Every Day Cigarettes Smokeless Tobacco: Never Alcohol Use Standard Drinks/Week Comments Not Currently 0 (1 standard drink = 0.6 oz pur e alcohol) socially AUDIT-C Answer Date Recorded Frequency of Alcohol Consumption Never 01/15/2019 Average Number of Drinks Not on file 019 Frequency of Binge Drinking Not on file 12/26 Comments Unknown Sex and Gender Information Value Date Recorded Sex Assigned at Female 07/22/2023 11:05 PM CDT Legal Sex Female 10:36 PM CDT Gender Identity Female 07/22/2023 11:05 PM CDT Sexual Orientation Not on file Last Filed Vital Signs Vital Sign Reading Time Taken Comments Blood Pressure 143/84 08/29/2023 2:19 PM TIME STUDY TECHNOLOGIST Pulse 79 08/29/2023 2:19 PM TIME STUDY TECHNOLOGIST Temperature 36.9 C (98.4 F) 08/29/2023 11:53 AM TIME STUDY TECHNOLOGIST Respiratory Rate 18 08/29/2023 2:19 PM TIME STUDY TECHNOLOGIST Oxygen Saturation 100% 08/29/2023 2:19 PM TIME STUDY TECHNOLOGIST Inhaled Oxygen Concentration - - Weight 112 kg (247 lb) 08/29/2023 11:53 AM TIME STUDY TECHNOLOGIST Height 167.6 cm (5' 6) 08/29/2023 11:53 AM TIME STUDY TECHNOLOGIST Body Mass Index 39.87 08/29/2023 11:53 AM TIME STUDY TECHNOLOGIST Plan of Treatment Health Maintenance Due Date Last Done Comments Hepatitis C Virus (HCV) Screening 1985 Hepatitis B Immunization (1 of 3 - 19+ 3-dose series) 2004 Pneumococcal Immunization Combined (1 of 2 - PCV) 2004 Pap Smear 2006 Human Papillomavirus (HPV) Immunization (1 - 3-dose SCDM series) 2012 Cervical Cancer Screening (CCS) 2015 HPV/Cotest 2015 Influenza Immunization (#1) 05/27/202507/28, 07/08/2022, 07/27/2018 SARS-COV-2 Immunization ( - season) 2025 Respiratory Syncytial Virus (RSV) Immunization (Adult) (1 - 1-dose 75+ series) 2060 DTaP/Tdap/Td Immunization Discontinued 07/27/2018 TdaP Immunization Completed 07/27/2018 Meningococcal Immunization (ACWY) Aged Out No longer eligible based on patient's age to complete this topic Rotavirus Immunization Aged Out No lo nger eligible based on patient's age to complete this topic Insurance [place] Care Teams Envelope Adjuster Relationship Specialty Start Date End Date Jhon Valdovinos MD [address] [place] [address] , [address] [address] PCP - General Family Medicine 09/22/21
[2025-05-28 15:46] LABS: EDCOVIDSCREEN Negative (Negative); EDINFLUASCREEN Negative (Negative); EDINFLUBSCREEN Negative (Negative); EDSTREPNEGPOS1 Negative (Negative)
== END 2025-05-28 15:35 | disposition home or self-care (01) ==
PROVIDERS: Emergency Provider Nurse Practitioner Family; PCP Family Medicine
DX: J06.9 Acute upper respiratory infection, unspecified (principal); J02.9 Acute pharyngitis, unspecified; H66.92 Otitis media, unspecified, left ear; H65.01 Acute serous otitis media, right ear; Z20.822 Contact with and (suspected) exposure to COVID-19
CPT/HCPCS: 87426; 87804; 87880; 99213; G0463